=== PATIENT | female | born 1960 | race Caucasian/White ===

== ENCOUNTER 2019-08-18 01:29 | Outpatient (CLI) | payer OTHER, SELFPAY ==
--- NOTE | 2019-08-18 16:35 | DI.MAMMO_ITS ---
EXAM: MAMMO SCREENING CLINICAL HISTORY: screening Z12.39. TECHNIQUE: Mammograms were interpreted according to the usual protocol including computer analysis w [employer] CAD system, tomosynthesis and C-view imaging. FINDINGS: The breast tissue is of moderate radiodensity. There is no dominant mass. There are no suspicious jayson cifications and there has been no appreciable interval change when compared with prior images. IMPRESSION: No evidence of malignancy, category 1, yearly screening mammography is recommended. Breast density Shaquille penaloza. BI-RADS Cat 1 - Negative. Breast Density - Category B - Scattered areas of fibroglandular density.
== END 2019-08-18 01:49 ==
PROVIDERS: PCP Family Medicine; Visit Provider Nurse Practitioner
DX: Z12.31 Encounter for screening mammogram for malignant neoplasm of breast (principal)
CPT/HCPCS: 77063; 77067

== ENCOUNTER 2019-09-01 12:57 | Outpatient (REF) | payer OTHER, SELFPAY ==
--- NOTE | 2019-09-01 11:29 | PAPFT_PTH ---
PATIENT: Stephanie Davis LOC: [facility] U#:[id number] AGE/SX: 59/F ROOM: RE09/01/[address]: Brina Almeida APRN : 1960 BED: DIS: 09/01/2019 SPEC #: [id number] RECD: 09/01/19 13:03 STATUS: ISIS ZAMARRIPA #: [id number] JHONNY: 09/01/19 11:[address]: Brina Almeida DEPT: [facility] Cytology RECD BY: Kristan Tian ENTERED: 09/01/19 13:04 SP TYPE: PAPFT OTHR DR: Alberto Whitney MD Tissues: 1 - CX/ENDOCX FOR PAP SMEARS Procedures: PAP THIN PREP/UVM Screening HPV DNA PROBE Comments: [id number]
== END 2019-09-01 13:17 ==
LOC: LBN 12:57
PROVIDERS: PCP Family Medicine
DX: Z12.4 Encounter for screening for malignant neoplasm of cervix (principal); Z11.51 Encounter for screening for human papillomavirus (HPV)
CPT/HCPCS: 88142; 87624

== ENCOUNTER 2019-10-26 07:24 | Day surgery (SDC) | payer OTHER, SELFPAY ==
[2019-10-26 07:34] VITALS: BP 103/60; PULSE 52; RESP 16; TEMP 36.4; O2SAT 97
[2019-10-26] MEDS: Lactated Ringers 1,000 ML 100 ML IV (08:00)
[2019-10-26] MEDS: Acetaminophen 500 MG TAB 1000 MG PO (08:06)
[2019-10-26] MEDS: Gabapentin 300 MG CAP PO (08:06)
--- NOTE | 2019-10-26 10:50 | SOFT_PTH ---
PATIENT: Stephanie Davis LOC: [facility] U#:[id number] AGE/SX: 59/F ROOM: RE10/26/[address]: Ana Maria Trammell : 1960 BED: DIS: 10/26/2019 SPEC #: [id number] RECD: 10/26/19 12:38 STATUS: ISIS REQ #: [id number] JHONNY: 10/26/19 10:[address]: Ana Maria Trammell DEPT: Surgical Specimen RECD BY: Kristan Tian ENTERED: 10/26/19 12:38 SP TYPE: SOFT OTHR DR: Brina Almeida APRN Tissues: 1 - SOFT TISSUE MISC (INC. LIPOMA) Procedures: GROSS AND MICRO LEVEL 3 Comments: [id number]
--- NOTE | 2019-10-26 11:12 | PDOC.DSDIS_ITS ---
Discharge Plan Discharge Details Attending Provider: Ana Maria Trammell Primary Care Provider: Brina Almeida Home Meds and New Rx's Prescriptions: New tramadol 50 mg tablet 50 mg PO Q4H PRN (Reason: pain) Qty: 14 RF: 0 ibuprofen 600 mg tablet 600 mg PO Q6H PRN (Reason: pain) Qty: 90 RF: 2 Discharge Instructions Additional Instructions: Caring for Your Incision You?ll need to help care for your incision after surgery and certain medical procedures. To close an incision, your healthcare provider used stitches (sutures), special strips of surgical tape called Steri-Strips, surgical stapl es, or surgical skin glue. Follow the tips on this sheet to help stop bleeding, speed healing, and prevent infection of your incision. Pain Control Use ice! Ice keeps the swelling down and swelling is what causes pain. Never apply ice directly to the skin. Wrap it in a towel or cloth. Apply ice 20 minutes on and 20 minutes off for pain control. Use as needed. Take tylenol 325 mg by mouth with food every 4 hours as needed for pain. Or ibuprofen 400 mg by mouth with food every 4 hours as needed for pain. Do not take tylenol if you have a history of heavy drinking , hepatits C or liver problems. Do not take ibuprofen if you have a history of stomach ulcers/problems, bleeding problem or kidney issues. Types of incision closures ? Surgical stitches (sutures) are placed by sewing the edges of an incision together with surgical thread. Sutures are either absorbable or non-absorbable. Absorbable sutures break down in the body over time. Non-absorbable sutures need to be removed. ? Home care ? Always wash your hands before touching your incision. ? Keep the incision clean, dry, and out of water, keep the incision out of water. ? Do not to pick at the scabs. Scabs help protect the wound. ? You can take a shower in 24 hours and wash the incision with soap and water. Pat dry/don?t scrub. It?s OK to wash around the incision. But don?t spray water directly on it. ? Pat stitches dry if they get wet. Don't rub. ? Check the incision site daily for pain, redness, drainage, swelling, or separation of the incision edges. ? If there is a bandage (dressing) over the incision, change this every 24 hours as instructed by your provider. Using clean hands change the dressing as directed by your healthcare provider. Always wash your hands before changing your dressing. ? Make sure any clothing that touches the incision is loose-fitting. This will prevent rubbing. If the incision is on the head, keep your child from wearing caps or other head coverings. These may rub against the incision. ? Try to avoid from rough play, contact sports, or physical activities for two weeks. This can put you at risk of opening the incision. ? Make sure you avoid doing things that could cause dirt or sweat to get in or on the incision. As your incision heals, the skin may appear pink or red. It may also feel slightly bumpy or raised. This is called a healing ridge. Over time, the color should fade and the raised skin will become less noticeable. Care for specific closures : ? Sutures or alen. Once you no longer need to keep these dry, clean the incision or wound daily, generally after the first 24 hours. First remove the bandage using clean hands. Then wash the area gently with soap and warm water. Use a wet cotton swab to loosen and remove any blood or crust that forms. After cleaning, put a thin layer of antibiotic ointment on. Then put on a new bandage. Follow-up care [place] or sutures generally need to be removed in 7-10 days. Be sure to return for suture or staple removal as directed. If dissolving stitches were used in your mouth, these will not need to be removed. They should fall out or dissolve on their own. If tape closures were used, remove them yourself when your healthcare provider tells you to if they have not fallen off on their own. When to seek medical care Call your healthcare provider right away if you have any of these: ? More pain, redness, swelling, bleeding, or foul-smelling discharge around the incision area ? Fever of 101?F (38.3?C) or higher, or as directed by your child's healthcare provider ? Shaking chills ? Vomiting or nausea that doesn?t go away ? Numbness, coldness, or tingling around the incision area, or changes in skin color ? Opening of the sutures or wound Stitches or alen come apart or fall out or surgical tape falls off before 7 days, or as directed by your healthcare provider [facility] on Thursday 11/02 for drain removal and on 11/06 for suture removal [phone] Activity:: no strenuous activity or lifting over 5# x 2 wks Remove Dressings/Wound Care:: 24 hours Shower/Bathe:: 24 hours Activity:: as above Equipment/Supplies:: No Equipment Needed Diet:: Normal Diet DS: Diagnosis Discharge Diagnosis (1) Melanocytic nevi of face: Status: Acute Asessment and Plan: x4 (2) Lipoma of back: Status: Acute
--- NOTE | 2019-10-26 11:12 | W.PM.OP ---
Date of service: 10/26/19 Time of Service: 11:12 Operative Note Operative Note DATE OF PROCEDURE: 10/26/19 PRE-OP DIAGNOSIS: lipoma POST-OP DIAGNOSIS: same PROCEDURE: excision 5x3 SURGEON: Ana Maria Trammell MANNEQUIN SANDER AND FINISHER: Naomi Peralta ANESTHESIA: MANDY ESTIMATED BLOOD LOSS: 5 Patient was transported to: same day Patient's condition: stable Procedure Description: dictated
[2019-10-26 11:56] VITALS: BP 96/49; PULSE 47; RESP 14; TEMP 36.5; O2SAT 96
[2019-10-26 12:52] VITALS: BP 103/61; PULSE 52; RESP 16; TEMP 36.5; O2SAT 96
--- NOTE | 2019-10-30 08:09 | ROE_ITS ---
REPORT OF OPERATIVE PROCEDURE DATE OF PROCEDURE October 26, 2019 PREOPERATIVE DIAGNOSES Soft tissue mass right posterior shoulder, most likely a lipoma. Removal of benign nevi x4. POSTOPERATIVE DIAGNOSIS Soft tissue mass right posterior shoulder, most likely a lipoma. Removal of benign nevi x4. PROCEDURE Excision of soft tissue mass. SURGEON Ana Maria Trammell D.O. ANESTHESIA MAC and local. ESTIMATED BLOOD LOSS 5 cc COMPLICATIONS The patient tolerated the procedure well without complications. INDICATIONS The patient is a 59-year-old female seen at the request of her primary care physician and is here today for excision of the soft tissue mass. She also has several moles that she would like removed. She has two moles on the right shoulder, one on the left arm and one on her face, they were marked in preop. Each of these is 5 mm. DESCRIPTION OF PROCEDURE The patient was brought to the Operating Suite, placed in the prone position. Anesthesia is administered per the Department of Anesthesia. The moles are attended to first and these are just done under local. There are four; each of them is 5 mm in size. Each one was prepped and draped in the usual sterile fashion using a Betadine scrub solution. Infiltrated with 3 cc of 0.25% Marcaine with epi. They are excised using a #12 blade. They were not sent to Pathology. They were closed each with a stitch of #4-0 Nylon and a Band-Aid type dressing is applied. The patient was then placed in the prone position with all bony surfaces padded. The mass was prepped and draped in the usual sterile fashion using a ChloraPrep scrub solution, it was infiltrated with 20 cc of 0.25% Marcaine with epi. A 2- inch incision was made across the center of the lesion. Again, this is about 5 x 3 inches in size. The lipoma is then sharply dissected out using [place] and delivered through the incision. Electrocautery provided hemostasis. There were two or three small bleeders that clips were used on. It does leave quite a large cavity and a 1/4 inch Toby drain is left in the cavity to drain the seroma. The skin was then closed in two layers with #3-0 Monocryl and 3-0 Nylon. The drain was sewn in separate. Sterile compression dressings applied. The patient tolerated the procedure well without complication, transferred to the Recovery Room in stable condition.
== END 2019-10-26 13:15 | disposition home or self-care (01) ==
LOC: SUR 07:24
PROVIDERS: Visit Provider Surgery
PROC: (CPT 11406; principal; 2019-10-26 09:15)
PROC: 0HB1XZZ Excision of Face Skin, External Approach (ICD-10-PCS; CPT 11406; 2019-10-26 09:15)
DX: D17.1 Benign lipomatous neoplasm of skin and subcutaneous tissue of trunk (principal); D22.61 Melanocytic nevi of right upper limb, including shoulder; D22.62 Melanocytic nevi of left upper limb, including shoulder; D22.30 Melanocytic nevi of unspecified part of face
CPT/HCPCS: 11406; 11400 ×3; 12032; 11440; 88304; J1885; J2250; J2405

== ENCOUNTER 2020-09-16 02:45 | Outpatient (CLI) | payer OTHER, SELFPAY ==
[2020-09-16 14:05] LABS: ALT 21 U/L (14-59); AST 18 U/L (15-37); Albumin 3.8 g/dL (3.4-5.0); Alkaline Phosphatase 76 U/L (46-116); Anion Gap 9.9 mmol/L (3-11); BUN 14 mg/dL (7-18); Bilirubin, Total 0.6 mg/dL (0.2-1.0); CO2 28.1 mmol/L (21.0-32.0); CREATININE 0.79 mg/dL (0.55-1.02); Chloride 105 mmol/L (98-107); Glucose 87 mg/dL (74-106); Potassium 4.2 mmol/L (3.5-5.1); Sodium 143 mmol/L (136-145); Total Protein 7.4 g/dL (6.4-8.2)
== END 2020-09-16 03:05 ==
DX: Z00.00 Encounter for general adult medical examination without abnormal findings (principal)
CPT/HCPCS: 36415; 80053

== ENCOUNTER 2020-09-16 04:31 | Outpatient (CLI) | payer OTHER, SELFPAY ==
--- NOTE | 2020-09-16 07:10 | DI.MAMMO_ITS ---
EXAM: MG MAMMO SCREENING CLINICAL HISTORY: screening,Z12.39 TECHNIQUE: Bilateral full field digital CC and MLO mammographic images were obtained with 3D tomosyn thesis and utilizing computer aided detection (CAD). COMPARISON: Available for comparison. FINDINGS: Masses/Architectural Distortion: None seen. Microcalcifications: No suspicious pleomorphic-type are seen. Skin Thickening/Nipple Retraction: None. IMPRESSION: 1. No significant interval change with no specific features of malignancy noted. 2. Unless there is more urgent need, screening mammography is recommended, as per [employer] guidelines. BI-RADS Category 1 - Negative Breast Density - Category C - Heterogeneously dense The mammogram demonstrates the patient's breast tissue is dense. Dense breast tissue is very common a nd is not abnormal but dense breast tissue can make it harder to find cancer on a mammogram. Also, de nse breast tissue may increase their breast cancer risk. This information about the result of the [facility] mogram report was provided to the patient to raise their awareness. Use this report when you speak wi th the patient about their risks for breast cancer, which includes their family history. At that time , you may recommend for more screening tests (Ultrasound or MRI) as they might be useful based on the ir risk. A negative radiographic report should not delay biopsy if a dominant or clinically suspicious mass is present. Up to ten percent of cancers are not identified on mammography. A negative report may reinforce clinical impression. Adenosis and dense breasts may obscure an underlying neoplasm. False positive reports average 6 to 10%. Patient will receive a letter notifying them of these results.
== END 2020-09-16 04:51 ==
DX: Z12.31 Encounter for screening mammogram for malignant neoplasm of breast (principal)
CPT/HCPCS: 77063; 77067

== ENCOUNTER 2021-12-21 01:31 | Outpatient (CLI) | payer OTHER, SELFPAY ==
[2021-12-21 10:33] LABS: ALT 39 U/L (14-59); AST 31 U/L (15-37); Albumin 3.6 g/dL (3.4-5.0); Alkaline Phosphatase 107 U/L (46-116); BUN 18 mg/dL (7-18); Bilirubin, Total 0.5 mg/dL (0.2-1.0); CREATININE 0.8 mg/dL (0.55-1.02); Calcium 8.7 mg/dL (8.5-10.1); Calculated LDL 82 mg/dL (<100); Chloride 106 mmol/L (98-107); Cholesterol 177 mg/dL (<200); Glucose 86 mg/dL (74-106); HDL Cholesterol 89 mg/dL (40-60); Potassium 4.4 mmol/L (3.5-5.1); Sodium 140 mmol/L (136-145); Triglyceride 34 mg/dL (<150)
== END 2021-12-21 01:32 | disposition home or self-care (01) ==
LOC: LBO 01:31
DX: Z13.220 Encounter for screening for lipoid disorders (principal); Z00.00 Encounter for general adult medical examination without abnormal findings
CPT/HCPCS: 36415; 80053; 80061

== ENCOUNTER 2022-04-09 12:48 | Outpatient (REF) | payer OTHER, SELFPAY ==
[2022-04-10 14:03] LABS: HSV 1 DNA Result Positive (Negative); HSV 2 DNA Result Negative (Negative)
[2022-04-11 09:24] LABS: Chlamydia Result Negative (Negative); GC Result Negative (Negative)
== END 2022-04-09 12:49 | disposition home or self-care (01) ==
LOC: LBN 12:48
DX: L98.8 Other specified disorders of the skin and subcutaneous tissue (principal); N89.8 Other specified noninflammatory disorders of vagina
CPT/HCPCS: 87491; 87529; 87591; 87480; 87510; 87660

== ENCOUNTER 2022-06-26 15:25 | Outpatient (REF) | payer OTHER, SELFPAY ==
[2022-06-26 20:33] LABS: Bilirubin Negative (Negative); Blood Moderate (Negative); Clarity Cloudy (Clear); Glucose Negative (Negative); Ketones Negative (Negative); Leukocyte Esterase Trace (Negative); Nitrite Negative (Negative); Specific Gravity >= 1.030 (1.005-1.025); Urobilinogen 0.2 EU/dL (Up TO 0.2); pH 5.5 (5-8)
[2022-06-26 20:46] LABS: Bacteria Many HPF (Negative); C & S Indicated? Yes; Casts Negative LPF (Negative); Crystals Few Amorphous HPF (Negative); Epithelial Cells Rare HPF (Negative); Mucus Negative (Negative)
== END 2022-06-26 15:26 | disposition home or self-care (01) ==
LOC: LBN 15:25
PROVIDERS: Visit Provider Nurse Practitioner Family
DX: R39.89 Other symptoms and signs involving the genitourinary system (principal); R30.0 Dysuria; R35.0 Frequency of micturition
CPT/HCPCS: 87077; 81003; 81015; 87086; 87186

== ENCOUNTER 2022-10-31 14:55 | Outpatient (REF) | payer OTHER, SELFPAY | END 2022-10-31 14:56 | disposition home or self-care (01) | LOC: LBN 14:55 | PROVIDERS: PCP Nurse Practitioner Family; Visit Provider Nurse Practitioner Family | DX: R31.9 Hematuria, unspecified (principal) | CPT/HCPCS: 87086 ==

== ENCOUNTER → 2023-07-09 01:47 | Outpatient (CLI) | payer OTHER, SELFPAY ==
--- NOTE | 2023-07-09 12:13 | DI.MAMMO_ITS ---
Exam(s) MAMMO SCREENING EXAM: MAMMO SCREENING CLINICAL HISTORY: screening, Z12.39 TECHNIQUE: Mammograms were interpreted according to the usual protocol including computer analysis w [employer] CAD system, tomosynthesis and C-view imaging. COMPARISON: 2018 and 2019 FINDINGS: The breasts are composed of heterogeneously dense fibroglandular densities, Breast Density category C . No suspicious masses or suspicious microcalcifications are seen. No skin thickening or abnormal axillary lymph nodes are seen. There has been no significant change from prior exams. IMPRESSION: BI-RADS Category 1, Negative mammogram. Yearly screening mammography is recommended. Breast Density Category C, heterogeneously Dense. The mammogram demonstrates the patient's breast tissue is dense. Dense breast tissue is very common a nd is not abnormal but dense breast tissue can make it harder to find cancer on a mammogram. Also, de nse breast tissue may increase breast cancer risk. This information about the result of the mammogram report was provided to the patient to raise their awareness. Use this report when you speak with the patient about their risks for breast cancer, which includes their family history. At that time, you may recommend additional screening tests (Ultrasound or MRI) as they might be useful based on their r isk. A negative radiographic report should not delay biopsy if a dominant or clinically suspicious mass is present. Up to ten percent of cancers are not identified on mammography. A negative report may reinforce clinical impression. Adenosis and dense breasts may obscure an underlying neoplasm. False positive reports average 6 to 10%.
== END ==
PROVIDERS: PCP Nurse Practitioner Family; Visit Provider Nurse Practitioner Family
DX: Z12.31 Encounter for screening mammogram for malignant neoplasm of breast (principal)
CPT/HCPCS: 77063; 77067

== ENCOUNTER 2023-11-04 10:54 | Outpatient (REF) | payer OTHER, SELFPAY ==
--- NOTE | 2023-11-04 09:30 | PAPFT_PTH ---
PATIENT: Stephanie Davis LOC: [facility] U#:[id number] AGE/SX: 63/F ROOM: RE11/04/[address]: Rashawn Rodriguez DNP : 1960 BED: DIS: 11/04/2023 SPEC #: [id number] RECD: 11/04/23 13:18 STATUS: ISIS REKirk #: [id number] JHONNY: 11/04/23 09:[address]: Rashawn Gordon DEPT: [facility] Cytology RECD BY: Kristan Tian Tissues: 1 - CX/ENDOCX FOR PAP SMEARS Procedures: PAP THIN PREP/UVM Screening HPV DNA PROBE Comments: [id number]
== END 2023-11-04 10:55 | disposition home or self-care (01) ==
LOC: LBN 10:54
PROVIDERS: PCP Nurse Practitioner Family; Visit Provider Nurse Practitioner Family
DX: Z12.4 Encounter for screening for malignant neoplasm of cervix (principal)
CPT/HCPCS: 88142; 87624

== ENCOUNTER 2024-09-29 01:45 | Outpatient (CLI) | payer OTHER, SELFPAY ==
--- NOTE | 2024-09-29 09:24 | DI.RAD_ITS ---
Exam(s) XR KNEE RT 3V AP,LAT,LORENA EXAM: XR KNEE RT 3V AP,LAT,LORENA CLINICAL HISTORY: square dancing injury 4 months ago,RT KNEE PAIN,M25.561. TECHNIQUE: 2D digital imaging was performed of the right knee. Three views obtained. AP, lateral an d PA tunnel views were obtained. COMPARISON: No exams were available for comparison FINDINGS: BONES: No acute fracture is present. No bony destructive lesion is seen. There is an enthesophyte at the superior patella. JOINTS: There is mild narrowing seen in the medial femoral tibial joint. Small osteophytes are seen in all 3 joint compartments. No joint effusion is seen. SOFT TISSUE: Normal. IMPRESSION: 1. No evidence of an acute or healing fracture or dislocation. 2. [id number] degenerative changes of the right knee. DATA REPOSITORY: RADIATION DOSE DELIVERED:
== END 2024-09-29 02:05 ==
LOC: DI 01:45
PROVIDERS: PCP Nurse Practitioner Family; Visit Provider Nurse Practitioner Family
DX: M25.561 Pain in right knee (principal)
CPT/HCPCS: 73562

== ENCOUNTER 2024-12-09 13:03 | Outpatient (CLI) | payer OTHER, SELFPAY ==
--- NOTE | 2024-12-09 15:45 | DI.MRI_ITS ---
Exam(s) MR LOWER JOINT RT WO EXAM: MR LOWER JOINT RT WO CLINICAL HISTORY: PAIN M23.91 INTERNAL DERANGEMENT RT KNEE. TECHNIQUE: Multiplanar multisequence MRI was performed. COMPARISON: CR XR KNEE RT 3V AP,LAT,LORENA from 09/29/2024 FINDINGS: BONES: There is no fracture or contusion pattern. Degenerative cysts in the medial tibial plateau. Degenerative changes at the tibial spines. Spurring from the medial femoral condyle. Mild spurring from the lateral femoral condyle and lateral tibial plateau. JOINTS: A small joint effusion is present. Articular cartilage: Patellofemoral joint: Articular cartilage is unremarkable. Medial femoral tibial joint: Mild cartilage thinning. Lateral femoral tibial joint: Mild cartilage thinning. LIGAMENTS/TENDONS: Anterior Cruciate: Unremarkable. Posterior Cruciate: Unremarkable. Medial Collateral:Unremarkable. Lateral Collateral ligament complex: Unremarkable. Extensor mechanism: Unremarkable. Medial retinaculum: Unremarkable. Lateral retinaculum: Unremarkable. Popliteus: Unremarkable. MENISCI: The medial meniscus is peripherally displaced. Abnormal stellate signal in the body. Irregular incr eased signal in the posterior horn. The lateral meniscus is peripherally displaced. Amorphous signal in the body, likely degenerative. MUSCLES: Unremarkable. SOFT TISSUES: Unremarkable. IMPRESSION: Degenerative changes of the femoral tibial joints with cartilage thinning. Degenerative changes of t he menisci. High signal in the body of the medial meniscus could indicate superimposed tear. No ligament tear. DATA REPOSITORY:
== END 2024-12-09 13:23 ==
LOC: DI 13:03
PROVIDERS: PCP Nurse Practitioner Family; Visit Provider Student in an Organized Health Care Education/Training Program
DX: M17.11 Unilateral primary osteoarthritis, right knee (principal)
CPT/HCPCS: 73721

== ENCOUNTER 2025-01-29 00:41 | Outpatient (CLI) | payer OTHER, SELFPAY ==
--- NOTE | 2025-01-29 07:15 | DI.DEXA_ITS ---
Exam(s) XR DEXA BONE DENSITY W/WO KIARA EXAM: XR DEXA BONE DENSITY W/WO KIARA CLINICAL HISTORY: screening for osteoporosis in postmenopausal status,z78.0 TECHNIQUE: COMPARISON: No exams were available for comparison FINDINGS: Lateral Spine Image: No compression deformities identified. There does appear to be grade 1 anterolis thesis of L4 on L5. Left hip: Total T-Score: -0.7 Total Z-Score: 0.5 T- and Z-scores: There is no evidence of osteoporosis. Lumbar Spine: Total T-Score: 0.7 Total Z-Score: 2.4 T- and Z-scores: Within normal limits. IMPRESSION: No evidence of osteoporosis.
--- NOTE | 2025-01-29 12:19 | DI.MAMMO_ITS ---
Exam(s) MAMMO SCREENING EXAM: MAMMO SCREENING CLINICAL HISTORY: screening,z12.39. TECHNIQUE: Bilateral full field digital CC and MLO mammographic images were obtained with 3D tomosyn thesis and utilizing computer aided detection (CAD). COMPARISON: Prior mammograms were reviewed. FINDINGS: There has been no significant change in the appearance and distribution of the fibroglandular tissue. There are no CAD designations There are no new spiculated masses nor malignant appearing microcalcification groups. There is no significant architectural distortion nor skin thickening-retraction. IMPRESSION: No radiographic evidence of malignancy. BI-RADS Category 1 - Negative Breast Density - Category C - Heterogeneously dense Breast density Category C or D implies that the patient has dense breast tissue. Dense breast tissue can make it harder to find cancer on a mammogram. Dense breast tissue is also associated with an incr eased risk of breast cancer. This information about the result of the mammogram report was provided to the patient to raise their awareness. Use this report when you speak with the patient about their risks for breast cancer, which includes their family history. At that time, you may recommend additional screening tests (Ultrasoun d or MRI) as these tests may add significant information. A negative radiographic report should not delay biopsy if a dominant or clinically suspicious mass is present. Up to ten percent of cancers are not identified on mammography. A negative report may reinforce clinical impression. Adenosis and dense breasts may obscure an underlying neoplasm. False positive reports average 6 to 10%. Patient will receive a letter notifying them of these results.
== END 2025-01-29 01:01 ==
LOC: DI 00:42
PROVIDERS: PCP Nurse Practitioner Family; Visit Provider Nurse Practitioner Family
DX: Z78.0 Asymptomatic menopausal state (principal); Z12.31 Encounter for screening mammogram for malignant neoplasm of breast; Z13.820 Encounter for screening for osteoporosis
CPT/HCPCS: 77063; 77067; 77080

== ENCOUNTER 2025-03-29 11:02 | Outpatient (CLI) | payer MEDICARE, OTHER, SELFPAY ==
[2025-03-29 11:34] LABS: ALT 22 U/L (14-59); AST 21 U/L (15-37); Albumin 3.7 g/dL (3.4-5.0); Alkaline Phosphatase 86 U/L (46-116); Anion Gap 6.1 mmol/L (3-11); BUN 20 mg/dL (7-18); Bilirubin, Total 0.4 mg/dL (0.2-1.0); CO2 29.9 mmol/L (21.0-32.0); CREATININE 0.6 mg/dL (0.55-1.02); Calculated LDL 88 mg/dL (<100); Chloride 105 mmol/L (98-107); Cholesterol 187 mg/dL (<200); Estimated GFR 99.55 (mL/min/1.73m2); Glucose 95 mg/dL (74-106); HDL Cholesterol 91 mg/dL (>or=50); Potassium 4.2 mmol/L (3.5-5.1); Sodium 141 mmol/L (136-145); Total Protein 7.3 g/dL (6.4-8.2); Triglyceride 44 mg/dL (<150)
[2025-03-29 13:10] LABS: Bilirubin Negative (Negative); Blood Trace-intact (Negative); Clarity Clear (Clear); Glucose Negative (Negative); Ketones Negative (Negative); Leukocyte Esterase Negative (Negative); Nitrite Negative (Negative); Specific Gravity 1.025 (1.005-1.025); Urobilinogen 0.2 mg/dL (Up to 0.2); pH 5.5 (5-8)
[2025-03-29 13:37] LABS: Bacteria Rare HPF (Negative); C & S Indicated? No; Casts Negative LPF (Negative); Crystals Negative HPF (Negative); Epithelial Cells Rare HPF (Negative); Mucus Trace (Negative); WBC 0-2 HPF (0-5)
== END 2025-03-29 11:03 | disposition home or self-care (01) ==
LOC: LBO 11:02
PROVIDERS: PCP Nurse Practitioner Family; Visit Provider Nurse Practitioner Family
DX: Z13.220 Encounter for screening for lipoid disorders (principal); R30.0 Dysuria
CPT/HCPCS: 36415; 80053; 80061; 81003; 81015

== ENCOUNTER 2025-08-06 16:24 | Outpatient (REF) | payer MEDICARE, OTHER, SELFPAY | END 2025-08-06 16:25 | disposition home or self-care (01) | LOC: LBN 16:24 | PROVIDERS: PCP Nurse Practitioner Family; Visit Provider Nurse Practitioner Family | DX: N39.0 Urinary tract infection, site not specified (principal); N76.0 Acute vaginitis | CPT/HCPCS: 87077; 87086; 87186; 87480; 87510; 87660 ==

== ENCOUNTER 2025-10-14 21:03 | Outpatient (REF) | payer MEDICARE, OTHER, SELFPAY ==
[2025-10-14 21:25] LABS: Glucose Negative (Negative)
[2025-10-14 21:34] LABS: WBC >50 HPF (0-5)
[2025-10-14 21:35] LABS: C & S Indicated? Yes
== END 2025-10-14 21:04 | disposition home or self-care (01) ==
LOC: LBN 21:03
PROVIDERS: PCP Nurse Practitioner Family; Visit Provider Nurse Practitioner Family
DX: R39.851 Costovertebral (angle) tenderness, right side (principal)
CPT/HCPCS: 87077; 81003; 81015; 87086; 87186